=== PATIENT | male | born 1980 | race Caucasian/White ===

== ENCOUNTER 2017-06-14 08:27 | Observation (INO) | payer OTHER ==
[2017-06-14] MEDS ORDERED: KETOROLAC 30 MG/ML 1 ML VIAL IVP STA ×2 (08:49→13:07)
--- NOTE | 2017-06-14 08:53 | ED ---
Chest Pain HPI - General Chief Complaint: Chest Pain Stated Complaint: chest pain Time Seen by Provider: 06/14/17 08:37 Source: patient, RN notes reviewed Mode of arrival: wheelchair Limitations: no limitations - History of Present Illness Initial Comments: This is a 36-year-old male with a history of vertigo and sinus problems last fall who presents with what 2 days of headache some dizziness and also some right-sided chest discomfort. He states it was worse today he states he took a shower he was feeling well but once work it was recurring. He states the pain is squeezing like right-sided midsternal radius to the back 5/10 severity. Does increase with deep breathing. Patient also states he gets dizzy with moving his head up and down her side to side. Patient has no personal history of heart disease or lung disease. There is a family history of hypertension and heart attacks. Patient is not a smoker. 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 He complains some frontal headache some upper neck pain no other mitigating factors at this time MD Complaint: chest pain, other - Related Data Home Medications Medication Instructions Recorded Confirmed Hydrocortisone Cream 1 applic TOPICAL DAILY 06/14/17 06/14/17 [Hydrocortisone 2.5% Cream] Phenylephrine HCl [Sudafed PE] 10 mg PO Q4H PRN 06/14/17 06/14/17 Allergies Allergy/AdvReac Type Severity Reaction Status Date / Time radish Allergy Rash/Hives Uncoded 06/14/17 08:48 Review of Systems ROS Statement: Those systems with pertinent positive or pertinent negative responses have been documented in the HPI. ROS Other: All systems not noted in ROS Statement are negative. EKG Findings - EKG Results: EKG: interpreted by GUILLERMINA, sinus rhythm (Sinus rhythm incomplete right bundle- branch block rate was 68. Interval 164 QRS 118 daily since QTC of 370/393 nonspecific inferior changes.) Past Medical History Past Medical History: No Reported History History of Any Multi-Drug Resistant Organisms: None Reported Past Surgical History: Hernia Repair, Orthopedic Surgery Past Psychological History: No Psychological Hx Reported Smoking Status: Never smoker Past Alcohol Use History: None Reported Past Drug Use History: None Reported General Exam - General Exam Comments Initial Comments: Is a well-developed well-nourished awake alert oriented 3 male Limitations: no limitations General appearance: alert, in no apparent distress Head exam: Present: atraumatic, normocephalic, normal inspection Eye exam: Present: normal appearance, PERRL, EOMI. Absent: scleral icterus, conjunctival injection, periorbital swelling ENT exam: Present: other (Some dullness and fluid behind both tympanic membranes. No erythema noted on the left. Tenderness to percussion over the frontal and the mastoid sinuses. Boggy nasal mucosa.) Neck exam: Present: normal inspection, tenderness (Some tenderness palpation of the paraspinous musculature and upper cervical spine but no meningismus.), full ROM. Absent: meningismus, lymphadenopathy Respiratory exam: Present: normal lung sounds bilaterally, chest wall tenderness (Some reproducible tenderness palpation of the right costal sternal margin no step-off or crepitation this does reproduce the pain the patient complains of with palpation). Absent: respiratory distress, wheezes, rales, rhonchi, stridor Cardiovascular Exam: Present: regular rate, normal rhythm, normal heart sounds. Absent: systolic murmur, diastolic murmur, rubs, gallop, clicks GI/Abdominal exam: Present: soft, normal bowel sounds. Absent: distended, tenderness, guarding, rebound, rigid Extremities exam: Present: normal inspection, full ROM, normal capillary refill. Absent: tenderness, pedal edema, joint swelling, calf tenderness Back exam: Present: normal inspection Neurological exam: Present: alert, oriented X3, CN II-XII intact Psychiatric exam: Present: normal affect, normal mood Skin exam: Present: warm, dry, intact, normal color. Absent: rash Course Vital Signs 06/14/17 06/14/17 06/14/17 08:30 10:16 11:55 Temperature 98.3 F Pulse Rate 80 66 68 Respiratory 20 18 17 Rate Blood Pressure 152/88 124/70 123/77 O2 Sat by Pulse 99 97 97 Oximetry 06/14/17 13:00 Temperature Pulse Rate 62 Respiratory 19 Rate Blood Pressure 144/89 O2 Sat by Pulse 99 Oximetry Chest Pain MDM - MDM I did review the imaging and report no acute findings. There is evidence on CT paranasal sinusitis patient persisted having profound dizziness generally not feeling well the chest pain did improve somewhat likely atypical cardiac Associates be totally ruled out Disposition Clinical Impression: Atypical chest pain, Vertigo, Cephalgia Disposition: ADMITTED IP TO THIS HOSP Condition: Stable Referrals: None,Stated [Primary Care Provider] - 1-2 days
[2017-06-14 09:32] LABS: Basophils % (A) 1 %; Eosinophils # (A) 0.1 k/uL (0-0.7); Eosinophils % (A) 1 %; HCT 50.1 % (39.0-53.0); HGB 17.2 gm/dL (13.0-17.5); Lymphocytes % (A) 28 %; MCH 29.1 pg (25.0-35.0); MCHC 34.3 g/dL (31.0-37.0); MCV 84.7 fL (80.0-100.0); Monocytes # (A) 0.9 k/uL (0-1.0); Monocytes % (A) 12 %; Neutrophils # (A) 4.1 k/uL (1.3-7.7); Neutrophils % (A) 57 %; Platelet Count 291 k/uL (150-450); RBC 5.92 m/uL (4.30-5.90); RDW 12.9 % (11.5-15.5); WBC 7.2 k/uL (3.8-10.6)
[2017-06-14 09:46] LABS: D-Dimer <0.17 mg/L FEU (<0.60); Prothrombin Time 10.2 sec (9.0-12.0)
[2017-06-14 09:50] LABS: ALT 41 U/L (21-72); AST 27 U/L (17-59); Albumin 4.8 g/dL (3.5-5.0); Alkaline Phosphatase 56 U/L (38-126); Amylase 50 U/L (30-110); Anion Gap 14 mmol/L; Blood Urea Nitrogen 18 mg/dL (9-20); Carbon Dioxide 26 mmol/L (22-30); Chloride 103 mmol/L (98-107); Glucose 102 mg/dL (74-99); Lipase 73 U/L (23-300); Potassium 4.9 mmol/L (3.5-5.1); Sodium 143 mmol/L (137-145); Total Bilirubin 1.2 mg/dL (0.2-1.3); Total Protein 7.6 g/dL (6.3-8.2)
--- NOTE | 2017-06-14 09:57 | CT ---
EXAMINATION TYPE: CT brain wo con DATE OF EXAM: 06/14/2017 COMPARISON: NONE HISTORY: 36-year-old male complains of headache and dizziness. TECHNIQUE: Examination was done in axial plane without intravenous contrast. Coronal and sagittal r econstructions performed. CT DLP: 1117.27 mGycm Automated exposure control for dose reduction was used. FINDINGS: There is no evidence of acute intracranial hemorrhage, acute ischemic changes, mass, mass-effect, or extra-axial fluid collection. There is no effacement of cerebral sulci or basal subarachnoid cister ns. There is no hydrocephalus. There is no midline shift. Markham-white matter distinction is preserv ed. Mastoid air cells well pneumatized. Paranasal sinuses reported separately. IMPRESSION: 1. No acute intracranial abnormality seen. 2. Paranasal sinuses reported separately.
--- NOTE | 2017-06-14 10:00 | CT ---
EXAMINATION TYPE: CT sinus wo con DATE OF EXAM: 06/14/2017 COMPARISON: NONE HISTORY: 36-year-old male complains of headache and dizziness. CT DLP: 452.37 mGycm Automated exposure control for dose reduction was used. TECHNIQUE: Noncontrast axial views of the paranasal sinuses were obtained. Coronal reconstructions pe rformed. FINDINGS: There is only trace mucosal thickening within the inferior maxillary sinuses. The frontal, ethmoid, a nd sphenoid sinuses are clear and well pneumatized. There is no air-fluid level. Reactive jules- osteogenesis is not seen. There is no destruction of the osseous cortez of the paranasal sinuses. The osteomeatal complexes are patent. Slight leftward deviation of the nasal septum. The imaged orbits are normal in appearance. Mastoid air cells and middle ear cavities are well pneumatized. Reformatted images confirm above findings. IMPRESSION: Only trace mucosal thickening within the bilateral maxillary sinuses. Otherwise, no significant paran izzy sinus disease.
--- NOTE | 2017-06-14 10:00 | XR ---
EXAMINATION TYPE: XR chest 2V DATE OF EXAM: 06/14/2017 COMPARISON: NONE HISTORY: Chest pain. Chest pressure. TECHNIQUE: Frontal and lateral views of the chest are obtained. FINDINGS: Somewhat low lung volumes are present. There is no focal air space opacity, pleural effusi on, or pneumothorax seen. The cardiac silhouette size is enlarged. The osseous structures are intact . IMPRESSION: Cardiomegaly and low lung volumes without suspicious acute pulmonary process.
[2017-06-14 10:06] LABS: Creatine Kinase 166 U/L (55-170)
[2017-06-14 10:19] LABS: Creatine Kinase MB 0.4 ng/mL (0.0-2.4); Troponin I <0.012 ng/mL (0.000-0.034)
[2017-06-14] MEDS ORDERED: MECLIZINE 12.5 MG TAB PO STA (13:42)
[2017-06-14] MEDS ORDERED: cefTRIAXone IN SWFI 1,000 MG/10 ML SYRINGE IVP STA (13:43)
[2017-06-14] MEDS ORDERED: NITROGLYCERIN SL TABS 0.4 MG TAB SUBLINGUAL PRN (13:46)
[2017-06-14] MEDS ORDERED: HEPARIN SODIUM,PORCINE 5,000 UNIT/ML 1 ML VIAL IV ONE (13:46)
[2017-06-14] MEDS ORDERED: ACETAMINOPHEN TAB 325 MG TAB PO PRN (13:51)
[2017-06-14] MEDS ORDERED: SODIUM CHLORIDE 0.9% 1,000 ML IV SCH (14:00)
[2017-06-14] MEDS ORDERED: HEPARIN SOD,PORK IN 0.45% NACL 25,000 UNIT in 0.45% NACL 1 500ML.BAG IV SCH (14:00)
--- NOTE | 2017-06-14 14:17 | ED ---
Medical Decision Making - Lab Data Result diagrams: 06/14/17 09:19 06/14/17 09:19 Lab Results 06/14/17 06/14/17 06/14/17 Range/Units 09:19 09:19 09:19 WBC 7.2 (3.8-10.6) k/uL RBC 5.92 H (4.30-5.90) m/uL Hgb 17.2 (13.0-17.5) gm/dL Hct 50.1 (39.0-53.0) % MCV 84.7 (80.0-100.0) fL MCH 29.1 (25.0-35.0) pg MCHC 34.3 (31.0-37.0) g/dL RDW 12.9 (11.5-15.5) % Plt Count 291 (150-450) k/uL Neutrophils % 57 % Lymphocytes % 28 % Monocytes % 12 % Eosinophils % 1 % Basophils % 1 % Neutrophils # 4.1 (1.3-7.7) k/uL Lymphocytes # 2.0 (1.0-4.8) k/uL Monocytes # 0.9 (0-1.0) k/uL Eosinophils # 0.1 (0-0.7) k/uL Basophils # 0.0 (0-0.2) k/uL PT (9.0-12.0) sec INR (<1.2) APTT (22.0-30.0) sec D-Dimer (<0.60) mg/L FEU Sodium 143 (137-145) mmol/L Potassium 4.9 (3.5-5.1) mmol/L Chloride 103 (98-107) mmol/L Carbon Dioxide 26 (22-30) mmol/L Anion Gap 14 mmol/L BUN 18 (9-20) mg/dL Creatinine 0.95 (0.66-1.25) mg/dL Est GFR (CKD-EPI)AfAm >90 (>60 ml/min/1.73 sqM) Est GFR (CKD-EPI)NonAf >90 (>60 ml/min/1.73 sqM) Glucose 102 H (74-99) mg/dL Calcium 10.0 (8.4-10.2) mg/dL Magnesium 2.0 (1.6-2.3) mg/dL Total Bilirubin 1.2 (0.2-1.3) mg/dL AST 27 (17-59) U/L ALT 41 (21-72) U/L Alkaline Phosphatase 56 (38-126) U/L Total Creatine Kinase 166 (55-170) U/L CK-MB (CK-2) 0.4 (0.0-2.4) ng/mL CK-MB (CK-2) Rel Index 0.2 Troponin I <0.012 (0.000-0.034) ng/mL NT-Pro-B Natriuret Pep pg/mL Total Protein 7.6 (6.3-8.2) g/dL Albumin 4.8 (3.5-5.0) g/dL Amylase 50 (30-110) U/L Lipase 73 (23-300) U/L 06/14/17 06/14/17 Range/Units 09:19 09:19 WBC (3.8-10.6) k/uL RBC (4.30-5.90) m/uL Hgb (13.0-17.5) gm/dL Hct (39.0-53.0) % MCV (80.0-100.0) fL MCH (25.0-35.0) pg MCHC (31.0-37.0) g/dL RDW (11.5-15.5) % Plt Count (150-450) k/uL Neutrophils % % Lymphocytes % % Monocytes % % Eosinophils % % Basophils % % Neutrophils # (1.3-7.7) k/uL Lymphocytes # (1.0-4.8) k/uL Monocytes # (0-1.0) k/uL Eosinophils # (0-0.7) k/uL Basophils # (0-0.2) k/uL PT 10.2 (9.0-12.0) sec INR 1.0 (<1.2) APTT 24.0 (22.0-30.0) sec D-Dimer <0.17 (<0.60) mg/L FEU Sodium (137-145) mmol/L Potassium (3.5-5.1) mmol/L Chloride (98-107) mmol/L Carbon Dioxide (22-30) mmol/L Anion Gap mmol/L BUN (9-20) mg/dL Creatinine (0.66-1.25) mg/dL Est GFR (CKD-EPI)AfAm (>60 ml/min/1.73 sqM) Est GFR (CKD-EPI)NonAf (>60 ml/min/1.73 sqM) Glucose (74-99) mg/dL Calcium (8.4-10.2) mg/dL Magnesium (1.6-2.3) mg/dL Total Bilirubin (0.2-1.3) mg/dL AST (17-59) U/L ALT (21-72) U/L Alkaline Phosphatase (38-126) U/L Total Creatine Kinase (55-170) U/L CK-MB (CK-2) (0.0-2.4) ng/mL CK-MB (CK-2) Rel Index Troponin I (0.000-0.034) ng/mL NT-Pro-B Natriuret Pep 26 pg/mL Total Protein (6.3-8.2) g/dL Albumin (3.5-5.0) g/dL Amylase (30-110) U/L Lipase (23-300) U/L Disposition Clinical Impression: Atypical chest pain, Vertigo, Cephalgia, Sinusitis Disposition: ADMITTED IP TO THIS HOSP Condition: Stable
[2017-06-14] MEDS ORDERED: NALOXONE 0.4 MG/ML 1 ML VIAL IV PRN (16:55)
[2017-06-14] MEDS: MECLIZINE 25 MG TAB PO SCH (17:11)
[2017-06-14 17:31] LABS: Creatine Kinase 131 U/L (55-170)
--- NOTE | 2017-06-14 17:36 | P.HPIM ---
History of Present Illness H&P Date: 06/14/17 Chief Complaint: chest pain, blurred vision 36-year-old male with no significant past medical history. He presented to the hospital with a complaint of right-sided chest pain and blurry vision. Patient reports that he is at his baseline status of health however he's been complaining of some nasal congestion and symptoms of upper respiratory infection for about a week now he is then not self-medicating with over-the- counter Zyrtec and Sudafed. He was driving to work today where he works in [employer] when all of a sudden he felt right-sided chest pressure by 5 /10 in severity nonradiating and was associated with blurry vision and some lightheadedness. So he headed to the hospital for further evaluation He denies any fevers or any chills. Denies any prior history of heart attacks. However he reports strong family history of premature CAD in his dad. Patient is overall active, is involved in contact sports last time he played again was around the weekend with no limitations. She reports complete resolution of chest pain at this point. He denies any coughing nausea or vomiting, denies any abdominal pain diarrhea. Upon further evaluation of the workup in the ED, I noticed on his EKG that he has a Q-wave in lead 3. For which I will consult cardiology for further evaluation. Review of Systems Constitutional: Patient denies fever, denies chills, denies night sweating, denies significant weight changes Eyes: Patient reports blurry vision for sure. Today, denies eye pain ENT: Patient denies ear pain, reports rhinorrhea, denies sore throat Cardiovascular: Patient reports chest pain as in HPI, denies exertional dyspnea , denies peripheral leg edema, denies orthopnea, denies paroxysmal nocturnal dyspnea Respiratory:Patient denies cough, denies wheezing, denies shortness of breath Gastrointestinal: Patient denies diarrhea, denies constipation, denies nausea , denies vomiting, denies abdominal pain Genitourinary: Patient denies dysuria, denies hematuria, denies changes in urinary habits, denies genital lesions Musculoskeletal: Patient denies muscle pain, denies joint pain Psychiatric: Patient denies changes in mood or memory, denies suicidal ideation, denies anxiety Endocrine: Patient denies heat intolerance, denies cold intolerance, denies excessive thirst, denies polyuria Neurological: Patient denies focal neurologic deficits, denies weakness, denies numbness, denies tingling Hem/Lymphatic: Patient denies bleeding tendency, denies bruising, denies swollen lymph glands Allergic/Immun: Patient denies recent allergic reactions Skin: Patient denies rashes, denies pruritis, denies ulcers Past Medical History Past Medical History: No Reported History Additional Past Medical History / Comment(s): bulging discs History of Any Multi-Drug Resistant Organisms: None Reported Past Surgical History: Hernia Repair, Orthopedic Surgery Additional Past Surgical History / Comment(s): lt inguinal hernia repair, 3 rt knee arthroscopies Past Anesthesia/Blood Transfusion Reactions: No Reported Reaction Additional Past Anesthesia/Blood Transfusion Reaction / Comment(s): clausterphobia Smoking Status: Never smoker - Past Family History Mother Family Medical History: Seizure Disorder Additional Family Medical History / Comment(s): epilepsy, ms Father Family Medical History: Diabetes Mellitus, Hypertension, Myocardial Infarction ( [place]) Additional Family Medical History / Comment(s): Premature CAD Medications and Allergies Home Medications Medication Instructions Recorded Confirmed Type Hydrocortisone Cream 1 applic TOPICAL DAILY 06/14/17 06/14/17 History [Hydrocortisone 2.5% Cream] Phenylephrine HCl [Sudafed PE] 10 mg PO Q4H PRN 06/14/17 06/14/17 History Allergies Allergy/AdvReac Type Severity Reaction Status Date / Time radish Allergy Rash/Hives Uncoded 06/14/17 08:48 Physical Exam Vitals: Vital Signs Temp Pulse Pulse Resp BP BP Pulse Ox 06/14/17 16:00 64 18 06/14/17 15:35 97.6 F 64 18 143/74 96 06/14/17 14:54 72 18 133/79 96 06/14/17 13:00 62 19 144/89 99 06/14/17 11:55 68 17 123/77 97 06/14/17 10:16 66 18 124/70 97 06/14/17 08:30 98.3 F 80 20 152/88 99 Intake and Output 06/14/17 06/14/17 06/14/17 06:59 14:59 22:59 Other: Voiding Method Toilet Weight 117.934 kg 124.2 kg Constitutional: No acute distress, conversant, pleasant Eyes: Anicteric sclerae, moist conjunctiva, no lid-lag Pupils equal round reactive to light ENMT: NC/AT, no tenderness palpation of the sinuses frontal or maxillary Oropharynx clear, no erythema, or exudates Neck: Supple, FROM, no masses, or JVD No carotid bruits No thyromegaly Lungs: Clear to auscultation Clear to percussion Normal respiratory effort, no accessory muscle use No tenderness to palpation of the chest Cardiovascular: Heart regular in rate and rhythm, No murmurs, gallops, or rubs No peripheral edema Abdominal: Soft Nontender, no guarding, rebound or rigidity Abdomen moving with respiration Normoactive bowel sounds No hepatomegaly, No splenomegaly No palpable mass No abdominal wall hernia noted Skin: Normal temperature, tone, texture, turgor No induration No subcutaneous nodules No rash, lesions No ulcers Extremities: No digital cyanosis No clubbing Pedal pulses intact and symmetrical Radial pulses intact and symmetrical No calf tenderness Psychiatric: Alert and oriented to person, place and time Appropriate affect fair judgment Neuro Muscles Strength 5/5 in all 4 extremities Sensation to light touch grossly present throughout Cranial nerves II-XII grossly intact No focal sensory deficits Lymphatics: no palpable cervical or supraclavicular , or inguinal lymph nodes Results CBC & Chem 7: 06/14/17 09:19 06/14/17 09:19 Labs: Abnormal Lab Results - Last 24 Hours (Table) 06/14/17 06/14/17 Range/Units 09:19 09:19 RBC 5.92 H (4.30-5.90) m/uL Glucose 102 H (74-99) mg/dL Assessment and Plan Assessment: 36-year-old male with no significant past medical history. Patient reports history of premature CAD in his dad. He presented due to right-sided chest pain felt like pressure with atypical features, however upon further revision of his workup has EKG showed significant Q-wave in lead 3. With his strong family history of premature CAD further workup including serial troponins and cardiac enzymes, lipid profile and A1c, and cardiology consult for evaluation. Otherwise patient reports that he has an active lifestyle, denies smoking, he is involved in sports a regular basis without any limitations. Plan: #Atypical chest pain Positive for Q-wave in lead 3 Family history of premature CAD Check lipid profile Check A1c Continue with aspirin Discontinue heparin drip Sublingual nitro when necessary for chest pain Cardiology consult Cardiac monitoring #Blurry vision Resolved now Check carotid ultrasound Computed tomography scan of the head negative #Mild sinusitis secondary to upper respiratory infection Continue with antihistamines Discontinue phenylephrine for now until ACS ruled out Flonase twice a day #DVT prophylaxis Heparin subcu 3 times a day CODE STATUS: Full code DVT prophylaxis: Heparin subcu Discussed with: Patient, ER, RN Anticipated discharge: <48hours Anticipated discharge place: Home A total of 50 minutes was spent on the care of this complex patient more than 50 % of the time was spent in counseling and care coordination.
[2017-06-14 17:44] LABS: Creatine Kinase MB 0.3 ng/mL (0.0-2.4); Troponin I <0.012 ng/mL (0.000-0.034)
[2017-06-14] MEDS: FLUTICASONE 50MCG/SPRAY NASAL 16GM EA NOSTRIL SCH ×2 (18:30→20:36)
[2017-06-14 20:01] VITALS: RESP 16
--- NOTE | 2017-06-14 21:24 | US ---
EXAMINATION TYPE: US carotid duplex BILAT DATE OF EXAM: 06/14/2017 COMPARISON: NONE CLINICAL HISTORY: blurry vision for short period. Blurred vision EXAM MEASUREMENTS: RIGHT: Peak Systolic Velocity (PSV) cm/sec ----- Right CCA: 79.0 ----- Right ICA: 83.8 ----- Right ECA: 58.0 ICA/CCA ratio: 1.1 RIGHT: End Diastole cm/sec ----- Right CCA: 20.8 ----- Right ICA: 22.5 ----- Right ECA: 12.8 LEFT: Peak Systolic Velocity (PSV) cm/sec ----- Left CCA: 108.2 ----- Left ICA: 102.3 ----- Left ECA: 88.5 ICA/CCA ratio: 0.9 LEFT: End Diastole cm/sec ----- Left CCA: 23.4 ----- Left ICA: 31.3 ----- Left ECA: 19.5 VERTEBRALS (direction of flow): Right Vertebral: Antegrade Left Vertebral: Antegrade Rhythm: Normal Bilateral vessels dive deep. No significant stenosis seen IMPRESSION: There is antegrade flow in the vertebral arteries. The images and measurements suggest c lose to 0% stenosis in both internal carotid arteries. Criteria for Assigning % of Stenosis / Diameter reduction (Estimation based on the indirect measurements of the internal carotid artery velocities (ICA PSV). 1. Normal (no stenosis)=ICA PSV < 125 cm/s: ratio < 2.0: ICA EDV<40 cm/s. 2. Less than 50% stenosis=ICA PSV < 125 cm/s: ratio < 2.0: ICA EDV<40 cm/s. 3. 50 to 69% stenosis=ICA PSV of 125 to 230 cm/s: ration 2.0 ? 4.0: ICA EDV 40-100 cm/s. 4. Greater than 70% stenosis to near occlusion= ICA PSV > 230 cm/s: ratio > 4.0: ICA EDV > 100 cm/s. 5. Near occlusion= ICA PSV velocities may be low or undetectable: variable ratio and ICA EDV. 6. Total occlusion=unable to detect flow.
[2017-06-14 22:12] LABS: Creatine Kinase 123 U/L (55-170)
[2017-06-14 22:25] LABS: Creatine Kinase MB 0.3 ng/mL (0.0-2.4); Troponin I <0.012 ng/mL (0.000-0.034)
[2017-06-14] MEDS: HEPARIN SODIUM,PORCINE 5,000 UNIT/ML 1 ML VIAL SQ SCH (23:48)
[2017-06-15] MEDS: MECLIZINE 25 MG TAB PO SCH ×2 (03:23→08:35)
[2017-06-15 06:45] LABS: Basophils % (A) 1 %; Eosinophils % (A) 0 %; HCT 47.2 % (39.0-53.0); HGB 16.3 gm/dL (13.0-17.5); Lymphocytes # (A) 1.7 k/uL (1.0-4.8); Lymphocytes % (A) 25 %; MCH 29.7 pg (25.0-35.0); MCHC 34.4 g/dL (31.0-37.0); MCV 86.2 fL (80.0-100.0); Mean Platelet Volume 6.8; Monocytes # (A) 0.8 k/uL (0-1.0); Monocytes % (A) 12 %; Neutrophils # (A) 4.2 k/uL (1.3-7.7); Neutrophils % (A) 61 %; Platelet Count 253 k/uL (150-450); RBC 5.48 m/uL (4.30-5.90); RDW 12.9 % (11.5-15.5); WBC 6.9 k/uL (3.8-10.6)
[2017-06-15 07:01] LABS: ALT 34 U/L (21-72); AST 23 U/L (17-59); Albumin 4.3 g/dL (3.5-5.0); Alkaline Phosphatase 51 U/L (38-126); Anion Gap 12 mmol/L; Blood Urea Nitrogen 20 mg/dL (9-20); Calcium 9.6 mg/dL (8.4-10.2); Carbon Dioxide 27 mmol/L (22-30); Chloride 104 mmol/L (98-107); Cholesterol 196 mg/dL (<200); Glucose 105 mg/dL (74-99); HDL Cholesterol 35 mg/dL (40-60); LDL Cholesterol,Calculated 127 mg/dL (0-99); Potassium 4.6 mmol/L (3.5-5.1); Sodium 143 mmol/L (137-145); Total Bilirubin 1.2 mg/dL (0.2-1.3); Total Protein 6.9 g/dL (6.3-8.2); Triglycerides 169 mg/dL (<150)
[2017-06-15 08:19] VITALS: BP 140/71; PULSE 78; TEMP 98.2
[2017-06-15] MEDS: HEPARIN SODIUM,PORCINE 5,000 UNIT/ML 1 ML VIAL SQ SCH (08:36)
[2017-06-15] MEDS: FLUTICASONE 50MCG/SPRAY NASAL 16GM EA NOSTRIL SCH (08:40)
[2017-06-15] MEDS ORDERED: ASPIRIN 325 MG TAB PO SCH (09:00)
[2017-06-15] MEDS ORDERED: LORATADINE 10 MG TAB PO SCH (09:00)
--- NOTE | 2017-06-15 09:34 | P.CRDCN ---
History of Present Illness Consult date: 06/15/17 History of present illness: Mr. Sandoval is a pleasant 36-year-old male with no significant past medical history. He denies personal history of coronary artery disease, hypertension, diabetes or high cholesterol. He has significant family history of his father having heart disease in the 30s. We have been asked to see him in consultation for complaints of chest pain. He states yesterday morning when he woke up he felt facial congestion. He proceeded with his normal morning activities, took a shower and went to work. While he was driving he started getting acutely dizzy, blurred vision and headache. He was attempting to proceed with his day and then developed a right sided chest pain that was tight feeling. Denies radiation of the pain and denies associated shortness of breath , palpitaitons, nausea, vomiting, diaphoresis or dizziness. He decided to come to ED for evaluation. His pain went away on its own once he was given a nasal spray. No further episodes of chest pain since admission. EKG reveals sinus mechanism with incomplete right bundle branch block. Chest xray negative for an acute cardiopulmonary process. Brain CT is negative for an acute process. Carotid duplex shows 0% stenosis of b/l carotid arteries. Sinus CT shows mucosal thickening within bilateral maxillary sinuses. Laboratory data reviewed, hemoglobin 16.3, platelets 250, d-dimer less than 0.1, , cardiac enzymes negative 3. He takes no cardiac medications. Review of Systems At the time of my exam: CONSTITUTIONAL: Denies fever. Denies chills. EYES: Denies blurred vision. Denies vision changes. Denies eye pain. EARS, NOSE, MOUTH & THROAT: Denies headache. Denies sore throat. Denies ear pain. CARDIOVASCULAR: Denies chest pain. Denies shortness of breath. Denies orthopnea. Denies PND. Denies palpitations. RESPIRATORY: Denies cough. GASTROINTESTINAL: Denies abdominal pain. Denies diarrhea. Denies constipation. Denies nausea. Denies vomiting. MUSCULOSKELETAL: Denies myalgias. INTEGUMENTARY: Denies pruitis. Denies rash. NEUROLOGIC: Denies numbness. Denies tingling. Denies weakness. PSYCHIATRIC: Denies anxiety. Denies depression. ENDOCRINE: Denies fatigue. Denies weight change. Denies polydipsia. Denies polyurina. GENITOURINARY: Denies burning, hematuria or urgency with micturation. HEMATOLOGIC: Denies history of anemia. Denies bleeding. Past Medical History Past Medical History: No Reported History Additional Past Medical History / Comment(s): bulging discs History of Any Multi-Drug Resistant Organisms: None Reported Past Surgical History: Hernia Repair, Orthopedic Surgery Additional Past Surgical History / Comment(s): lt inguinal hernia repair, 3 rt knee arthroscopies Past Anesthesia/Blood Transfusion Reactions: No Reported Reaction Additional Past Anesthesia/Blood Transfusion Reaction / Comment(s): clausterphobia Smoking Status: Never smoker - Past Family History Mother Family Medical History: Seizure Disorder Additional Family Medical History / Comment(s): epilepsy, ms Father Family Medical History: Diabetes Mellitus, Hypertension, Myocardial Infarction ( [place]) Additional Family Medical History / Comment(s): Premature CAD Medications and Allergies Home Medications Medication Instructions Recorded Confirmed Type Hydrocortisone Cream 1 applic TOPICAL DAILY 06/14/17 06/14/17 History [Hydrocortisone 2.5% Cream] Phenylephrine HCl [Sudafed PE] 10 mg PO Q4H PRN 06/14/17 06/14/17 History Allergies Allergy/AdvReac Type Severity Reaction Status Date / Time radish Allergy Rash/Hives Uncoded 06/14/17 08:48 Physical Exam Vitals: Vital Signs Temp Pulse Pulse Resp BP BP Pulse Ox 06/15/17 03:32 97.9 F 58 L 16 137/78 98 06/15/17 00:23 97.9 F 59 L 16 121/69 97 06/15/17 00:00 16 06/14/17 20:00 98.1 F 69 16 137/82 98 06/14/17 16:00 64 18 06/14/17 15:35 97.6 F 64 18 143/74 96 06/14/17 14:54 72 18 133/79 96 06/14/17 13:00 62 19 144/89 99 06/14/17 11:55 68 17 123/77 97 06/14/17 10:16 66 18 124/70 97 06/14/17 08:30 98.3 F 80 20 152/88 99 Intake and Output 06/14/17 06/15/17 06/15/17 22:59 06:59 14:59 Other: Voiding Method Toilet Toilet # Voids 1 1 Weight 124.2 kg Blood pressure 140/71 heart rate 78 afebrile maintaining oxygen saturation on room air GENERAL: This is a 36-year-old occasion male in no apparent distress at the time of my examination. Obese. HEENT: Head is atraumatic, normocephalic. Pupils are equal, round. Sclerae anicteric. Conjunctivae are clear. Mucous membranes of the mouth are moist. Neck is supple. There is no jugular venous distention. No carotid bruit is heard. LUNGS: Clear to auscultation no wheezes, rales or rhonchi. No chest wall tenderness is noted on palpation or with deep breathing. HEART: Regular rate and rhythm without murmurs, rubs or gallops. S1 and S2 heard. ABDOMEN: Soft, nontender. Bowel sounds are heard. No organomegaly noted. EXTREMITIES: No evidence of peripheral edema and no calf tenderness noted. VASCULAR: Radial and dorsalis pedis pulses palpated, no evidence of clubbing. NEUROLOGIC: Patient is awake, alert and oriented x3. Results 06/15/17 06:15 06/15/17 06:15 Cardiac Enzymes 06/14/17 06/14/17 06/14/17 Range/Units 09:19 09:19 16:44 AST 27 (17-59) U/L CK-MB (CK-2) 0.4 0.3 (0.0-2.4) ng/mL Troponin I <0.012 <0.012 (0.000-0.034) ng/mL 06/14/17 06/15/17 Range/Units 21:32 06:15 AST 23 (17-59) U/L CK-MB (CK-2) 0.3 (0.0-2.4) ng/mL Troponin I <0.012 (0.000-0.034) ng/mL Coagulation 06/14/17 Range/Units 09:19 PT 10.2 (9.0-12.0) sec APTT 24.0 (22.0-30.0) sec Lipids 06/15/17 Range/Units 06:15 Triglycerides 169 H (<150) mg/dL Cholesterol 196 (<200) mg/dL HDL Cholesterol 35 L (40-60) mg/dL CBC 06/14/17 06/15/17 Range/Units 09:19 06:15 WBC 7.2 6.9 (3.8-10.6) k/uL RBC 5.92 H 5.48 (4.30-5.90) m/uL Hgb 17.2 16.3 (13.0-17.5) gm/dL Hct 50.1 47.2 (39.0-53.0) % Plt Count 291 253 (150-450) k/uL Comprehensive Metabolic Panel 06/14/17 06/15/17 Range/Units 09:19 06:15 Sodium 143 143 (137-145) mmol/L Potassium 4.9 4.6 (3.5-5.1) mmol/L Chloride 103 104 (98-107) mmol/L Carbon Dioxide 26 27 (22-30) mmol/L BUN 18 20 (9-20) mg/dL Creatinine 0.95 1.18 (0.66-1.25) mg/dL Glucose 102 H 105 H (74-99) mg/dL Calcium 10.0 9.6 (8.4-10.2) mg/dL AST 27 23 (17-59) U/L ALT 41 34 (21-72) U/L Alkaline Phosphatase 56 51 (38-126) U/L Total Protein 7.6 6.9 (6.3-8.2) g/dL Albumin 4.8 4.3 (3.5-5.0) g/dL Current Medications Generic Name Dose Route Start Last Admin Trade Name Freq PRN Reason Stop Dose Admin Acetaminophen 650 mg 06/14/17 13:51 06/14/17 20:33 Tylenol Tab PO 650 mg Q6HR PRN Administration MILD Pain Aspirin 325 mg 06/15/17 09:00 Aspirin PO DAILY JOSE ALBERTO Fluticasone Propionate 2 spray 06/14/17 17:15 06/14/17 20:36 Flonase Nasal [place] EA NOSTRIL Not Given BID JOSE ALBERTO Heparin Sodium (Porcine) 5,000 unit 06/15/17 00:00 06/14/17 23:48 Heparin SQ 5,000 unit Q8HR JOSE ALBERTO Administration Sodium Chloride 1,000 mls @ 20 mls/hr 06/14/17 14:00 06/14/17 14:53 Saline 0.9% IV 20 mls/hr .Q24H JOSE ALBERTO Administration Loratadine 10 mg 06/15/17 09:00 Claritin PO DAILY JOSE ALBERTO Meclizine HCl 25 mg 06/14/17 16:00 06/15/17 03:23 Antivert PO Not Given Q8HR JOSE ALBERTO Naloxone HCl 0.2 mg 06/14/17 16:55 Narcan IV Q2M PRN Opioid Reversal Nitroglycerin 0.4 mg 06/14/17 13:46 Nitrostat SUBLINGUAL Q5M PRN Chest Pain Intake and Output 06/14/17 06/15/17 06/15/17 22:59 06:59 14:59 Other: Voiding Method Toilet Toilet # Voids 1 1 Weight 124.2 kg 06/15/17 06:15 06/15/17 06:15 Assessment and Plan Assessment: ASSESSMENT 1. Chest pain, atypical. An acute coronary event has been ruled out with negative cardiac enzymes 2. Dyslipidemia 3. Obesity 4. Family history of heart disease with father having MN in late 30's PLAN Lifestyle modifications discussed and recommended for weight loss and decreasing of LDL cholesterol. No cardiac work-up on this admission, follow-up with Dr. Musa in 2 weeks. Thank you kindly for this consultation. Nurse Practitioner note has been reviewed, I agree with a documented findings and plan of care. Patient was seen and examined.
--- NOTE | 2017-06-15 10:54 | P.DS ---
Providers Date of admission: 06/14/17 13:46 Attending physician: Kurt Amin MD Consults: 06/14/17 16:56 Consult Physician Routine Consulting Provider: Juno Mcclain Consult Reason/Comments: q wave, chest pain Do you want consulting provider notified?: Yes Primary care physician: Stated None Hospital Course: Final diagnoses at discharge #Atypical chest pain, none cardiac #Acute sinusitis Secondary diagnoses #Obesity #Family history of premature CAD Hospital course 36-year-old male with no significant past medical history. He presented to the hospital with a complaint of right-sided chest pain and blurry vision. Patient reports that he is at his baseline status of health however he's been complaining of some nasal congestion and symptoms of upper respiratory infection for about a week now he is then not self-medicating with over-the- counter Zyrtec and Sudafed. He was driving to work today where he works in [email or web address] when all of a sudden he felt right-sided chest pressure by 5 /10 in severity nonradiating and was associated with blurry vision and some lightheadedness. So he headed to the hospital for further evaluation He denies any fevers or any chills. Denies any prior history of heart attacks. However he reports strong family history of premature CAD in his dad. Patient is overall active, is involved in contact sports last time he played again was around the weekend with no limitations. She reports complete resolution of chest pain at this point. He denies any coughing nausea or vomiting, denies any abdominal pain diarrhea. Upon further evaluation of the workup in the ED, I noticed on his EKG that he has a Q-wave in lead 3. For which I will consult cardiology for further evaluation. Patient was seen and examined on day of discharge, reports some improvement in his sinus congestion after using Flonase, denies any further chest pain or trouble breathing. Denies any fevers chills headache nausea or vomiting. Denies any further blurred vision. Constitutional: vital signs stable, Not in acute distress, pleasant, conversant Lungs: Clear to auscultation bilaterally, clear to percussion, normal respiratory effort Cardiovascular: Regular rate and rhythm, no murmurs, no gallops, no rubs, no peripheral edema Gastrointestinal: Soft, no tenderness to palpation bowel sounds positive, no abdominal wall hernias Extremities: No digital cyanosis or clubbing, peripheral pulses palpable and equal over bilateral radial arteries and dorsalis pedis artery, no calf muscle tenderness Psych: Alert, oriented to place, person and time, appropriate affect, intact judgment Cardiology evaluated the patient, patient had negative cardiac enzymes. Cardiology suggested outpatient stress test and to follow up with cardiology office in 1-2 weeks. Patient was provided information for follow-up with new PCP upon his request. Prescriptions given to the patient for Flonase and antihistamines to help with this acute sinusitis. Patient verbalized understanding and agreement with the above plan, patient was discharged in stable clinical condition Patient was counseled regarding lifestyle modification and weight loss, and eating healthy cardiac diet low fat. And to avoid smoking and smoke exposure. Pertinent Studies: Carotid ultrasound, no evidence of internal carotid stenosis Computed tomography scan of the head suggested acute sinusitis otherwise no acute process EKG showing Q waves in inferior lead, patient evaluated by cardiology and suggested outpatient stress test, negative cardiac enzymes while in the hospital. No further events of chest pain while hospitalized. Patient Condition at Discharge: Stable Plan - Discharge Summary Discharge Rx Participant: No New Discharge Prescriptions: New Fexofenadine HCl 60 mg PO BID #10 tab Fluticasone Nasal [place] [Flonase Nasal [place]] 2 spray EA NOSTRIL BID #1 bottle No Action Hydrocortisone Cream [Hydrocortisone 2.5% Cream] 1 applic TOPICAL DAILY Phenylephrine HCl [Sudafed PE] 10 mg PO Q4H PRN PRN Reason: Congestion Discharge Medication List Hydrocortisone Cream [Hydrocortisone 2.5% Cream] 1 applic TOPICAL DAILY [History] Phenylephrine HCl [Sudafed PE] 10 mg PO Q4H PRN 06/14/17 [History] Fexofenadine HCl 60 mg PO BID #10 tab 06/15/17 [Rx] Fluticasone Nasal [place] [Flonase Nasal [place]] 2 spray EA NOSTRIL BID #1 bottle 06/15/17 [Rx] Follow up Appointment(s)/Referral(s): Lalit Musa MD [STAFF PHYSICIAN] - 06/29/17 10:00 am None,Stated [Primary Care Provider] - 1-2 days Prince Copeland MD [STAFF PHYSICIAN] - 3 Days Patient Instructions/Handouts: Sinusitis (GEN), Low Fat Diet (GEN), DASH Eating Plan (GEN) Activity/Diet/Wound Care/Special Instructions: heart healthy diet activity as tolerated Discharge Disposition: HOME SELF-CARE
[2017-06-15 15:00] LABS: Hemoglobin A1C 5.5 % (4.0-6.0)
== END 2017-06-15 11:19 | disposition home or self-care (01) ==
LOC: EC 08:27 → 3OBS 13:46
PROVIDERS: ADMIT Internal Medicine; ATTEND Internal Medicine
DX: R07.89 Other chest pain (principal); J01.90 Acute sinusitis, unspecified; H53.8 Other visual disturbances; R42 Dizziness and giddiness; E78.5 Hyperlipidemia, unspecified; E66.9 Obesity, unspecified; Z68.33 Body mass index [BMI] 33.0-33.9, adult; Z91.018 Allergy to other foods; Z82.0 Family history of epilepsy and other diseases of the nervous system; Z83.3 Family history of diabetes mellitus; Z82.49 Family history of ischemic heart disease and other diseases of the circulatory system
CPT/HCPCS: 99285 ×2; 96374 ×2; 96375 ×4; 96372; 36415; 93005; 85379; 83880; 80061; 80053 ×2; 82150; 82550; 82553; 83690; 83735; 84484; 85025 ×2; 85610; 85730; 83036; 71046; 93880; 70450; 70486; G0378 ×2; J1644 ×2; J0696; J1885

== ENCOUNTER 2023-03-19 19:48 | Outpatient (CLI) | payer OTHER ==
--- NOTE | 2023-03-26 01:11 | SLS ---
SLEEP STUDY Polysomnography report. HISTORY OF PRESENT ILLNESS: This is a 42-year-old male patient, referred to me for sleep apnea evaluation. The patient had a chronic loud snoring and occasional apneas have been noted by his . He has excessive fatigue and chronic sleepiness. He works for a [employer] company. Reynolds score is between 8 and 9. Comorbid conditions include hypertension and previous history of stroke. He is functional. He has been affected by his fatigue and sleepiness. PERTINENT PHYSICAL FINDINGS: Height is 6 feet 3 inches, weight 296, BMI 37.0. TECHNICAL DESCRIPTION: The sleep evaluation of the patient consisted of clinical polysomnography, nocturnal respiratory battery, left and right anterior tibialis surface electromyography. The standard montage for the clinical polysomnography included the EEG, EOG, EMG, and EKG. Respiratory battery included measurements of nasal/buccal airflow, thoracic, and/or abdominal effort and intercostal surface EMG. Nocturnal oxyhemoglobin saturations were obtained by finger oximetry. Digital video and audio monitoring were done throughout the entire night to check or parasomnias. SLEEP ARCHITECTURE: Total time in bed was 283 minutes. Total sleep time 472.0 minutes. Sleep efficiency was 71%. Latency to sleep onset was 41 minutes. Latency to REM sleep was 220 minute and the sleep architecture was characterized by 16.2% stage I, 65.1% stage II, 0% stage III, and 18.8% REM sleep. SLEEP CONTINUITY SUMMARY: The patient had a total number of arousals of 37 with an arousal index of 8.2. Respiratory arousal index was 0.9. CARDIAC SUMMARY: Average heart rate was 61, minimum heart rate 57, maximum heart rate was 69. PERIODIC LIMB MOVEMENTS: A total of 178 periodic limb were counted with an index of 51.3. No arousals related to periodic limb movement activity. RESPIRATORY SUMMARY: The patient encountered a total of 30 obstructive events of which 0 obstructive apnea, 0 mixed apneas, 31 obstructive hypopneas and the patient's AHI was calculated to be at 6.4. This is considered to be mild obstructive sleep apnea. The patient also encountered nocturnal oxygen saturation that were minimal. Baseline pulse ox was 95% while awake. Normal pulse ox was 86% during sleep and this occurred during REM sleep. The patient spent approximately 28 minutes of sleep time below pulse ox of 89%. ASSESSMENT: 1. Obstructive sleep apnea, mild with an AHI of 6.4. 2. Mild nocturnal oxygen desaturation with a minimum pulse ox of 86%. 3. Chronic hypersomnia with an Reynolds score of 8. 4. Obesity with a BMI of 37. 5. Loud snoring. 6. Hypertension. PLAN: I had a high clinical suspicion for severe obstructive sleep apnea. Nevertheless, the current sleep study is showing mild HEBERT with an AHI of 6.4. Respiratory events turnstile attendant to be in the form of hypopneas and there were no significant desaturations. In addition, the arousal index is not high. I am not absolutely sure the patient is going to show significant benefit from CPAP therapy. I am going to discuss the findings with him. I would encourage him to lose weight, maintain good sleep hygiene measures, and maintain regular sleep schedule. He needs to extend his sleep hours. Obviously, a trial of CPAP may be advised to decide if CPAP therapy would cause any significant impact on the daytime functionality. A final decision will be done after discussing this with the patient. In general, the sleep apnea is mild and his fatigue and sleepiness is significantly out of proportion to the severity of the sleep apnea. MMODL / IJN: [id number] /
== END 2023-03-20 04:55 | disposition home or self-care (01) ==
LOC: 3 N SLEEP 19:48
PROVIDERS: ATTEND Internal Medicine Critical Care Medicine
DX: G47.33 Obstructive sleep apnea (adult) (pediatric) (principal); G47.10 Hypersomnia, unspecified; E66.9 Obesity, unspecified; I10 Essential (primary) hypertension; G47.36 Sleep related hypoventilation in conditions classified elsewhere; G47.52 REM sleep behavior disorder; G47.21 Circadian rhythm sleep disorder, delayed sleep phase type; Z91.018 Allergy to other foods; Z68.37 Body mass index [BMI] 37.0-37.9, adult
CPT/HCPCS: 95810